=== PATIENT | female | born 1975 | race Caucasian/White ===

== ENCOUNTER → 2024-12-21 11:04 | Outpatient (REF) | payer OTHER, SELFPAY ==
[2024-12-21 13:48] LABS: Rubella Positive
[2024-12-21 16:07] LABS: Hepatitis B Surface Antibody Indeterminate
[2024-12-23 11:26] LABS: Quantiferon Mitogen minus NIL 9.94 IU/mL; Quantiferon NIL 0.06 IU/mL; Quantiferon Plus TB1 minus NIL 0.02 IU/mL (<=0.34); Quantiferon Plus TB2 minus NIL 0.02 IU/mL (<=0.34); Quantiferon TB Gold Plus Negative (Negative)
[2024-12-23 16:49] LABS: Mumps Virus IgG Positive; Rubeola (Measles) IgG Positive; Varicella Zoster IgG (VZV) Positive
== END ==
LOC: OHS 11:04
PROVIDERS: ATTENDING PHYSICIAN Nurse Practitioner Family
DX: Z23 Encounter for immunization (principal)
CPT/HCPCS: 36415; 86480; 86706; 86735; 86762; 86765; 86787

== ENCOUNTER → 2025-02-14 19:43 | Outpatient (REF) | payer OTHER, SELFPAY ==
[2025-02-14 22:41] LABS: Hepatitis B Surface Antibody Positive
== END ==
LOC: REG 19:43
PROVIDERS: ATTENDING PHYSICIAN Nurse Practitioner Family
DX: Z23 Encounter for immunization (principal)
CPT/HCPCS: 86706